=== PATIENT | male | born 2005 | race Caucasian/White ===

== ENCOUNTER 2023-02-17 17:35 | Emergency (ER) | payer BC ==
[2023-02-17] MEDS ORDERED: Norepinephrine 4 MG in Dextrose 5% in Water 246 ML IV SCH ×2 (18:00)
[2023-02-17 19:16] LABS: BASOPHILS ABSOLUTE AUTO 0.06 10^3/uL (0.00-0.50); BASOPHILS PERCENT AUTO 0.4 % (0-1); EOSINOPHILS ABSOLUTE AUTO 0.18 10^3/uL (0.00-1.50); EOSINOPHILS PERCENT AUTO 1.2 % (0-6); HEMATOCRIT 38.4 % (42.0-52.0); HEMOGLOBIN 12.3 g/dL (14.0-18.0); IMMATURE GRAN ABSOLUTE AUTO 0.18 10^3/uL (0.00-0.49); IMMATURE GRAN PERCENT AUTO 1.2 % (0.0-4.9); LYMPHOCYTES ABSOLUTE AUTO 2.99 10^3/uL (0.60-5.00); LYMPHOCYTES PERCENT AUTO 20.2 % (24-44); MEAN CORPUSCULAR VOLUME 96.7 fL (83.0-97.0); MONOCYTES ABSOLUTE AUTO 0.77 10^3/uL (0.00-1.50); MONOCYTES PERCENT AUTO 5.2 % (0-10); NEUTROPHILS ABSOLUTE AUTO 10.59 x10^3/uL (1.80-8.00); NEUTROPHILS PERCENT AUTO 71.8 % (41-71); PLATELET COUNT,PLT 203 10^3/uL (150-400); RED BLOOD CELL COUNT 3.97 x10^6/uL (4.50-6.00); WHITE BLOOD CELL COUNT,WBC 14.8 10^3/uL (4.0-11.0)
[2023-02-17 19:17] LABS: ALANINE AMINOTRANSFERASE,ALT 18 U/L (12-78); ALKALINE PHOSPHATASE 85 U/L (46-116); ASPARTATE AMNIOTRANSFERASE,AST 64 U/L (15-37); BILIRUBIN TOTAL 0.2 mg/dL (0.0-1.0); BLOOD UREA NITROGEN,BUN 10 mg/dL (7-18); C-REACTIVE PROTEIN 0.58 mg/dL (<=0.50); CALCIUM 7.8 mg/dL (8.4-10.1); CARBON DIOXIDE,CO2 20 mmol/L (21-32); CHLORIDE,CL 99 mEq/L (98-106); CREATININE 1.4 mg/dL (0.7-1.3); ESTIMATED GFR 74 mL/min (>=60); GLUCOSE RANDOM 268 mg/dL (75-99); POTASSIUM,K 2.5 mEq/L (3.5-5.0); PROTEIN TOTAL,TP 6.3 g/dL (6.4-8.2); SODIUM,NA 137 mEq/L (136-145)
[2023-02-17] MEDS ORDERED: Norepinephrine 4 MG/4 ML SDV ONE (19:29)
[2023-02-17] MEDS ORDERED: Dextrose 5% in Water 250 ML ONE ×2 (19:30→19:38)
[2023-02-17] MEDS ORDERED: Phenylephrine 1% 10 MG/ML SDV ONE (19:34)
[2023-02-17] MEDS ORDERED: Ampicillin/Sulbactam 3 GM Vial IVPUSH ONE (19:52)
[2023-02-17] MEDS ORDERED: levETIRAcetam in NaCl (iso-os) 500 MG in Premix Bag 1 BAG IV ONE ×6 (21:13)
[2023-02-17] MEDS ORDERED: MANNITOL IV SCH (21:15)
[2023-02-17] MEDS ORDERED: ceFAZolin 2 GM Vial IVPUSH ONE (21:16)
[2023-02-17] MEDS ORDERED: Tranexamic Acid 1,000 MG in Sodium Chloride 0.9% 100 ML IV ONE ×2 (21:18→21:19)
[2023-02-17] MEDS ORDERED: Tranexamic Acid 1,000 MG/10 ML Vial TOP ONE (21:19)
[2023-02-17] MEDS ORDERED: Sodium Chloride 0.9% 0 ML ONE ×3 (22:58→23:11)
[2023-02-17] MEDS: Norepinephrine 4 MG in Dextrose 5% in Water 246 ML IV SCH ×4 (23:05→23:28)
[2023-02-17] MEDS ORDERED: Norepinephrine 4 MG in Dextrose 5% in Water 246 ML IV STA ×2 (23:20)
== END 2023-02-17 20:08 ==
LOC: CC.ED 17:35
DX: S01.83XA Puncture wound without foreign body of other part of head, initial encounter (principal); T79.4XXA Traumatic shock, initial encounter; E87.6 Hypokalemia; Z88.0 Allergy status to penicillin
CPT/HCPCS: 36415; 36430; 51702; 71045; 80053; 85025; 86140; 86850; 86900; 86901; 86920; 86922; 96365; 96366; 96368; 96375; 96376; 99291-25; 99292; J0295; J0690; J1953; J2371; J3490; J7040; J7060; P9016